=== PATIENT | male | born 1955 | race Caucasian/White ===

== ENCOUNTER → 2017-11-16 | Outpatient (CLI) | payer OTHER ==
[~2017-11-16] MED LIST: ACT30 PO; AMLO-110 PO; Flax Seed Oil PO; GLIM4TAB PO; LISI-461 PO; METF-384 PO; PRAV20TA PO; SITA25TA PO
--- NOTE | 2017-11-16 14:03 | DIAGNOSTIC IMAGING REPORT ---
CHEST 2 VIEWS ROUTINE CLINICAL HISTORY: Head cold. Possible pneumonia. COMPARISON STUDY: March 2011 FINDINGS: The cardiac and mediastinal contours are normal. There is no evidence of focal pulmonary consolidation. There is no evidence of failure. No pleural effusions are visualized.[ There is minor basilar atelectasis. There is an old right AC joint separation IMPRESSION: No active disease in the chest. Electronically signed by: Joe Cowan M.D. 11/16/2017 2:02 PM Dictated Date/Time: 11/16/2017 2:01 PM
== END | disposition home or self-care (01) ==
LOC: C.RAD 13:09
PROVIDERS: ATTEND Family Medicine
DX: J32.9 Chronic sinusitis, unspecified (principal)

== ENCOUNTER → 2017-11-28 | Outpatient (CLI) | payer OTHER ==
--- NOTE | 2017-11-29 06:53 | SPLIT NIGHT TECHNICIAN REPORT ---
[facility] Split Night Polysomnogram - Consulting Practice Manager Report Study date: 11/28/2017 Referring Physician: DR. YAN CORRIGAN Name: NAVYA CALDERA Consulting Practice Manager: BLAISE Olvera. Date of : 1955 Height: 62 years, Height 5' 11" Sex: Male Weight: 244 lbs Age: 62 BMI: Medications: 34.03 AMLODIPINE 5 MG, GLIMEPIRIDE 4 MG, LISINOPRIL 10 MG, METFORMIN 1000 MG, ACTOS 30 MG, PRAVASTATIN 20 MG, JANUVIA 25 MG, FLAX SEED OIL Patient History 62 yr-old male here for a baseline/split study. He has a history of shortness of breath, daytime sleepiness, and snoring. His [place] scale is 7. The test was started on room air. ETCO2 testing was not utilized during this study. Room 1 Parameters Monitored NPSG: E1-M2, E2-M1, Fp1-M2, Fp2-M1, F3-M2, F4-M2, F4-M1, C3-M2, C4-M2, C4-M1, O1-M2, O2-M2, O2-M1, T3-M2, T4-M1, P3-M2, P4-M1, CHIN1, CHIN2, HR, EKG, Legs, PFLOW, SNOR, FLOW, CFLOW, Tidal Volume, THOR, ABDO, SpO2, PLTH, CPRESS, ETCO2 Wave, ETCO2, pH SLEEP SUMMARY DATA DIAGNOSTIC TREATMENT Lights Out: 11:10:15 PM 2:07:15 AM Lights On: 1:50:15 AM 5:42:45 AM Total Recording Time (TRT): 160.0 min. 215.5 min. Total Sleep Time (TST): 122.5 min. 188.0 min. NREM Time: 122.5 min. 128.5 min. REM Time: 0.0 min. 59.5 min. Sleep Period Time (SPT): 134.5 min. 191.5 min. Sleep Efficiency (SE): 77 % 87 % Sleep Latency: 25.5 min. 24.0 min. Arousal Index: 16.7 5.4 PAP Treatment Levels: 4, 6, 7, 9, 10 * Optimal Pressure(s) SLEEP STAGING DATA DIAGNOSTIC TREATMENT Duration (min) TST % Duration (min) TST % Stage Wake: 37.5 min. -- 27.5 min. -- WASO: 12.0 min. -- 3.5 min. -- NREM: 122.5 min. 100 % 128.5 min. 68 % Stage N1: 14.0 min. 11 % 6.0 min. 3 % Stage N2: 108.0 min. 88 % 112.5 min. 60 % Stage N3: 0.5 min. 0 % 10.0 min. 5 % REM: 0.0 min. 0 % 59.5 min. 32 % POSITIONAL DATA Event Count Index Event Count Index Supine: N/A N/A 31 11.3 Supine NREM: N/A N/A 12 7.2 Supine REM: N/A N/A 19 18 Non-Supine: 89 42.6 4 8.2 Non-Supine NREM: 89 42.6 4 8.2 Non-Supine REM: N/A N/A N/A N/A AROUSAL SUMMARY DATA: Event Count Index Event Count Index Apnea Arousals: 3 6.4 0 0.6 Hypopnea Arousals: 8 3.9 3 1.0 Snore Arousals: 5 2.4 4 1.3 PLM Arousals: 8 3.9 6 1.9 Non-Specific Arousals: 8 3.9 5 1.6 Total Arousals: 34 16.7 17 5.4 MYOCLONUS (PLM) Event Count Index Event Count Index PLM: 162 79.3 112 35.7 PLM AROUSAL: 8 3.9 6 1.9 PLM W/O AROUSAL 162 79.3 106 33.8 PLM W/RESP EVENT 21 0.0 0 0.0 MYOCLONUS (PLM) Event Count Index Event Count Index LM: 0 24.0 8 2.6 LM AROUSAL: 0 0.0 0 0.0 LM W/O AROUSAL LM W/RESP EVENT LM NON SPECIFIC 151 74.0 113 36.1 HEART RATE DATA DIAGNOSTIC TREATMENT Sleep (bpm): 69 69 REM (bpm): N/A 93 NREM (bpm): 92 93 Tachycardia Count: 0 0 Tachycardia Duration: 0.00 0 Bradycardia Count: 0 0 Bradycardia Duration: 0.00 0 DIAGNOSTIC PORTION TREATMENT PORTION RESPIRATORY DATA Event Count Index Event Count Index AHI: -- 42.6 -- 10.9 RDI: -- 43.6 -- 11 Obstructive Apnea: 13 6.4 0 0.0 Central Apnea: 0 0.0 2 0.6 Mixed Apnea: 0 0.0 0 0.0 Hypopnea: 74 36.2 32 10.2 RERA: 2 1.0 1 0.3 Total Apneas: 13 6.4 2 0.6 RESPIRATORY DATA REM NREM SLEEP REM NREM SLEEP Supine Position: Obstructive Apneas: N/A N/A N/A 0 0 0 Central Apneas: N/A N/A N/A 1 1 2 Mixed Apneas: N/A N/A N/A 0 0 0 Hypopneas: N/A N/A N/A 17 11 28 RERA N/A N/A N/A 1 0 1 Total Supine Events: N/A N/A N/A 19 12 31 Supine AHI: N/A N/A N/A 18 7.2 11.3 Supine RDI: N/A N/A N/A 19.2 7.2 11.7 REM NREM SLEEP REM NREM SLEEP Non-Supine Position: Obstructive Apneas: N/A 13 13 N/A 0 0 Central Apneas: N/A 0 0 N/A 0 0 Mixed Apneas: N/A 0 0 N/A 0 0 Hypopneas: N/A 74 74 N/A 4 4 RERA N/A 2 2 N/A 0 0 Total Supine Events: N/A 89 89 N/A 4 4 Supine AHI: N/A 42.6 42.6 N/A 8.2 8.2 Supine RDI: N/A 43.6 43.6 N/A 8.2 8.2 OXYGEN DESTAURATION DATA: Event Count Index Event Count Index REM Desaturations: N/A N/A 19 19.2 NREM Desaturations: 101 49.5 19 8.9 SNORE DATA DIAGNOSTIC TREATMENT Snore Time: 27.6 2:31:15 AM Snore TST%: 10 13 Snore Arousal Count: 5 4 Snore Arousal Index: 2.4 1.3 Desaturation Event Summary: Minimum %SpO2 Event Count Mean/Min/Max Duration(sec.) Desaturation Index % Time In Bed > 90 144 20.3 / 8.8 / 60.0 25.7 90.0 86 - 90 10 14.3 / 9.5 / 31.3 18.0 8.9 81 - 85 0 N/A 0.0 1.0 76 - 80 0 N/A 0.0 0.0 71 - 75 0 N/A 0.0 0.0 66 - 70 0 N/A 0.0 0.0 61 - 65 0 N/A 0.0 0.0 56 - 60 0 N/A 0.0 0.0 51 - 55 0 N/A 0.0 0.0 < 50 0 N/A 0.0 0.0 OXYGEN SATURATION DATA DIAGNOSTIC TREATMENT SpO2 Mean Sleep: 92 % 93 % SpO2 Mean REM: N/A % 93 % SpO2 Mean NREM: 92 % 93 % SpO2 Minimum Sleep: 79 % 80 % SpO2 Minimum REM: N/A % 80 % SpO2 Minimum NREM: 79 % 83 % Time Below 90% (TST): 16.7 5.5 Time Below 88% (TST): 5.9 2.8 Total REM NREM Awake <50% 0.0 min. 0.0 min. 0.0 min. 0.0 min. 51 - 60% 0.0 min. 0.0 min. 0.0 min. 0.0 min. 61 - 70% 0.0 min. 0.0 min. 0.0 min. 0.0 min. 71 - 80% 0.1 min. 0.1 min. 0.1 min. 0.0 min. 81 - 90% 37.2 min. 3.1 min. 32.5 min. 1.6 min. 91 - 100% 335.8 min. 56.4 min. 218.3 min. 61.1 min. Average 93 93 92 94 Minimum SpO2 79 80 79 80 Desaturation Event Index 23.0 19.2 28.7 4.6 # Desat. Events below 89% 73 5 68 0 Time(%) with Saturation below 89% 3.7 0.3 3.3 0.1 Time(min.) with Saturation below 89% 13.9 1.2 12.4 0.4 Recording Consulting Practice Manager Comments: Mr. Caldera slept in the right, left, and supine positions. No cardiac arrhythmias were noted. PLMs were noted. No bruxism noted. Snoring was noted and scored as a 2 on a scale of 1 through 5. (0=no snoring, 5=snoring loud enough to be heard through a closed door or down the [address] way) At 2:00 am, he met specific Split-Night criteria during the diagnostic portion of this study. CPAP was initiated at +4 CMH2O and up-titrated to a level of +10 CMH2O, Cflex 2 which nearly eliminated all respiratory events and snoring. A Quattro Air full face mask size medium from [employer] was used during titration. He awoke to use the restroom one time during the night. Mr. Caldera stated that he slept about the same as usual. The final report will be interpreted and signed by a sleep physician. The completed physician report will then be placed in the patient medical record. Therapy Event: Therapy (cm H20) 0 4 6 7 9 10 Total Time at Pressure (min.) 160.0 45.0 28.5 21.0 108.7 12.3 TST at Pressure (min.) 122.5 21.0 28.0 20.5 106.7 11.8 # Periods 1 1 1 1 1 1 Sleep Onset (min.) 25.5 24.0 0.0 0.0 0.0 0.0 REM Onset (min.) N/A N/A N/A 16.5 4.0 0.0 Sleep Efficiency % 76 46 98 97 98 95 Wakefulness (%) 23.4 53.4 1.8 2.4 1.8 4.1 Wakefulness (min.) 37.5 24.0 0.5 0.5 2.0 0.5 NREM 1 (%) 8.8 3.3 0.0 4.8 2.8 4.1 NREM 1 (min.) 14.0 1.5 0.0 1.0 3.0 0.5 NREM 2 (%) 67.5 43.3 87.8 42.8 50.6 32.6 NREM 2 (min.) 108.0 19.5 25.0 9.0 55.0 4.0 NREM 3 (%) 0.3 0.0 10.4 33.4 0.0 0.0 NREM 3 (min.) 0.5 0.0 3.0 7.0 0.0 0.0 REM (%) 0.0 0.0 0.0 16.6 44.8 59.2 REM (min.) 0.0 0.0 0.0 3.5 48.7 7.3 # Arousals 34 2 1 2 11 1 Arousal Index 16.7 5.7 2.1 5.8 6.2 5.1 # Snore 1,090 268 315 116 244 18 Snore Index 533.9 767.3 674.8 338.8 137.2 91.8 AHI 42.6 11.5 0.0 35.1 9.6 5.1 AHI Supine N/A N/A 0.0 35.1 9.6 5.1 AHI Non-Supine 42.6 11.5 0.0 N/A N/A N/A NREM AHI 42.6 11.5 0.0 31.7 3.1 0.0 REM AHI N/A N/A N/A 51.4 17.2 8.3 RDI 43.6 11.5 0.0 35.1 10.1 5.1 # Obstructive 13 0 0 0 0 0 # Central Ap 0 0 0 0 1 1 # Mixed 0 0 0 0 0 0 # Hypopneas 74 4 0 12 16 0 RERAS 2 0 0 0 1 0 Total Respiratory Events 89 4 0 12 18 1 Time Below SpO2 89.00% (min.) 9.6 0.1 0.0 3.8 0.1 0.0 Mean NREM SpO2 (%) 92 92 92 91 93 95 Mean REM SpO2 (%) N/A N/A N/A 91 93 94 Mean Sleep SpO2 (%) 92 92 92 91 93 94 Min NREM SpO2 (%) 79 88 90 83 90 92 Min REM SpO2 (%) N/A N/A N/A 80 88 92 Position Supine (min.) 0.0 0.0 19.8 20.5 106.7 11.8 Position Non-supine (min.) 122.5 21.0 8.2 0.0 0.0 0.0 LM Index Sleep 103.3 63.0 4.3 2.9 53.4 0.0 LM Index NREM 103.3 63.0 4.3 3.5 91.0 0.0 LM Index REM N/A N/A N/A 0.0 8.6 0.0 Mean Heart Rate (bpm) 69 68 72 73 68 66 Min Heart Rate (bpm) 63 65 67 67 61 63 CPAP REPORT Therapy Detail Time / Page # Comment CPAP 4 cm H2O Full Face Mask Flex Pressure Relief Humidifier on 2:05:38 AM / pg. 730 HE HAS HAD OVER 2 HOURS OF SLEEP AND HIS AHI IS ABOVE 40 CPAP 6 cm H2O Full Face Mask Flex Pressure Relief Humidifier on 2:52:12 AM / pg. 823 INCREASED FOR HYPOPNEAS CPAP 7 cm H2O Full Face Mask Flex Pressure Relief Humidifier on 3:20:43 AM / pg. 880 INCREASED FOR SNORING CPAP 9 cm H2O Full Face Mask Flex Pressure Relief Humidifier on 3:41:45 AM / pg. 923 INCREASED FOR HYPOPNEAS CPAP 10 cm H2O Full Face Mask Flex Pressure Relief Humidifier on 5:30:29 AM / pg. 1140 INCREASED FOR HYPOPNEAS IN REM
--- NOTE | 2017-12-02 12:06 | POLYSOMNOGRAPH REPORT ---
CLINICAL DATA: A 62-year-old male with BMI of [address] Fredrick Alcantara for shortness of breath, daytime sleepiness, and snoring for a sleep study. His primary care physician is Dr. Cartagena. His [place] sleepiness score was 7/24. This was a split night sleep study. SLEEP ARCHITECTURE: For the diagnostic portion of the study, sleep period time was 134.5 minutes. Total sleep time was 122.5 minutes all non-REM sleep. Sleep latency was 25.5 minutes. Sleep efficiency was 77%. Sleep consisted of stage N1 12% and stage N2 88%. For the treatment portion of the study, sleep period time was 191.5 minutes. Total sleep time was 188 minutes divided between 128.5 minutes of non-REM sleep and 59.5 minutes of REM sleep. Sleep latency was 24 minutes. Sleep efficiency was 87%. Sleep consisted of stage N1 3%, stage N2 60%, stage N3 5%, and REM 32%. AROUSAL DATA: Prior to treatment, 34 arousals were recorded for an index of 16.7 per hour. During treatment, 17 arousals were recorded for an index of 5.4 per hour. PLM DATA: Prior to treatment, 162 limb movements during sleep were noted for an index of 79.3 per hour. During treatment, 113 limb movements during sleep were noted for an index of 36.1 per hour. EKG: Heart rates ranged from 69 to 93 beats per minute. No arrhythmias were noted. RESPIRATORY DATA: Severe sleep apnea was documented prior to treatment. The diagnostic AHI was 42.6. There were 13 obstructive apneic episodes and 74 hypopneic episodes. The average AHI during treatment was 10.9. There were 2 central apneic episodes and 32 hypopneic episodes. OXIMETRY DATA: Hypoxemia was seen prior to treatment. Oxygen marisol was 79% during non-REM sleep prior to treatment. Mean saturation with treatment was 92%. TUNE UP MECHANIC'S COMMENTS: The patient slept in the right, left, and supine position. Snoring was moderate, rated 2 on a scale of 1-5. At 2 a.m., he met split night criteria. A Quattro full face mask size medium from [email or web address] was used. The patient was titrated up to his final pressure setting of 10 cm water pressure, C-Flex setting 2. At this final pressure setting, he slept for just under 12 minutes with an AHI of 5. IMPRESSION: Severe sleep apnea/hypopnea with a diagnostic AHI of 42.6 with nocturnal hypoxemia corrected with CPAP 5 cm of water pressure, C-Flex setting 2, Quattro Air full facemask size medium from [employer]. RECOMMENDATIONS: The patient should be started on the above noted treatment regimen and seen back in followup within 90 days to document efficacy and compliance. Sleep medicine consultation may be of benefit. Clinical correlation is needed. MTDD
== END | disposition home or self-care (01) ==
LOC: C.NEUR 20:00
PROVIDERS: ATTEND Internal Medicine Cardiovascular Disease
DX: R06.83 Snoring (principal); R06.09 Other forms of dyspnea; I10 Essential (primary) hypertension; G47.30 Sleep apnea, unspecified; R09.02 Hypoxemia